=== PATIENT | male | born 1980 | race Caucasian/White ===

== ENCOUNTER 2017-07-15 08:51 | Emergency (ER) | payer OTHER ==
[~2017-07-15] VITALS: Ht 193 cm; Wt 93.0 kg
--- NOTE | 2017-07-15 09:00 | NUR ---
PATIENT PRESENTS TO ER C/O NUMBNESS AND TINGLING TO L FINGERS RADIATING UP L HAND SINCE THIS MORNING. PATIENT BREATHING EVEN AND UNLABORED. NO SOB. VITALS STABLE. SAFTEY AND COMFORT MEASURES IN PLACE. AWAITING MD ORDERS.
--- NOTE | 2017-07-15 09:20 | NUR ---
PATIENT TAKEN TO CT VIA WHEELCHAIR.
--- NOTE | 2017-07-15 09:30 | NUR ---
PATIENT RETURNED FROM CT IN STABLE CONDITION.
--- NOTE | 2017-07-15 10:10 | NUR ---
Patient discharged to home in stable condition. Written and verbal after care instructions given. Patient verbalizes understanding of instruction.
[2017-07-15 10:15] VITALS: BP 136/84
== END 2017-07-15 10:10 | disposition home or self-care (01) ==
LOC: ER 08:55
DX: M54.12 Radiculopathy, cervical region (principal)
CPT/HCPCS: 72125-TC; A4606; Z7610